=== PATIENT | male | born 1975 | race Caucasian/White ===

== ENCOUNTER 2017-05-17 18:29 | Emergency (ER) | payer SELFPAY ==
--- NOTE | 2017-05-17 18:34 | ED ---
HPI Febrile Illness - HPI Summary HPI Summary: 42 YEAR OLD MALE PRESENTS WITH COMPLAINS OF SYNCOPAL EPISODE X 2 IN THE BATHROOM AND LEFT SIDED RIB PAIN. - History of Current Complaint Time Seen by Provider: 05/17/17 18:33 - Allergy/Home Medications Allergies/Adverse Reactions: Allergies Allergy/AdvReac Type Severity Reaction Status Date / Time No Known Allergies Allergy Verified 05/17/17 18:45 Home Medications: Home Medications Ascorbic Acid [Vitamin C] 1 tab PO DAILY 05/17/17 [History Confirmed 05/17/17] Multiple Vitamins W/ Minerals [Multivitamin Adults] 1 tab PO DAILY 05/17/17 [ History Confirmed 05/17/17] Naproxen [Naprosyn 500 mg] 500 mg PO DAILY 05/17/17 [History Confirmed 05/17/17] PMH/Surg Hx/FS Hx/Imm Hx Previously Healthy: Yes Endocrine/Hematology History: Denies: Hx Diabetes Cardiovascular History: Denies: Hx Congestive Heart Failure, Hx Hypertension GI History: Reports: Other GI Disorders - hx of hernia History: Reports: Other Problems/Disorders - scrotal pain now - Social History Alcohol Use: None Substance Use Type: Reports: None Smoking Status (MU): Never Smoked Tobacco Review of Systems Positive: Fatigue Eyes: Negative ENT: Negative Cardiovascular: Negative Respiratory: Negative Gastrointestinal: Negative Genitourinary: Negative Musculoskeletal: Negative Skin: Negative Positive: Weakness, Syncope All Other Systems Reviewed And Are Negative: Yes Physical Exam Triage Information Reviewed: Yes Vital Signs Reviewed: Yes Appearance: Positive: Ill-Appearing Skin: Positive: Warm Head/Face: Positive: Normal Head/Face Inspection Eyes: Positive: Normal ENT: Positive: Normal ENT inspection Neck: Positive: Supple Respiratory/Lung Sounds: Positive: Clear to Auscultation Cardiovascular: Positive: Normal Abdomen Description: Positive: Nontender Bowel Sounds: Positive: Present Neurological: Positive: Normal Psychiatric: Positive: Normal Course/Dx - Diagnoses Provider Diagnoses: Syncope Discharge - Discharge Plan Condition: Stable Disposition: HOME Patient Education Materials: Fever in Adults (ED), Syncope (ED) Referrals: No Primary Care Phys,NOPCP [Primary Care Provider] - Additional Instructions: PLEASE GO TO ER TO RULE OUT CT/STROKE
[2017-05-17] MEDS ORDERED: Aspirin Low Dose CHEW TAB* 81 MG ONE (18:49)
[2017-05-17 18:51] VITALS: BP 190/108
[2017-05-17] MEDS ORDERED: Aspirin Low Dose CHEW TAB* 81 MG PO ONE (18:51)
[2017-05-18] MEDS ORDERED: Aspirin Low Dose CHEW TAB* 81 MG PO SCH (09:00)
== END 2017-05-17 18:55 | disposition home or self-care (01) ==
LOC: UCEAST 18:29
DX: R55 Syncope and collapse (principal); N50.82 Scrotal pain
CPT/HCPCS: 93005; 99201; A9270-GY; G0463

== ENCOUNTER 2017-05-17 19:14 | Emergency (ER) | payer SELFPAY ==
[2017-05-17 20:32] LABS: Hematocrit 42 % (42-52); Hemoglobin 13.6 g/dl (14.0-18.0); Mean Corpuscular HGB Conc 33 g/dl (31-36); Mean Corpuscular Hemoglobin 28 pg (27-31); Mean Corpuscular Volume 84 fL (80-94); Mean Platelet Volume 9 um3 (7.4-10.4); Red Blood Count 4.97 10^6/ul (4.0-5.4); Red Cell Distribution Width 14 % (10.5-15); White Blood Count 8.7 10^3/ul (3.5-10.8)
[2017-05-17 20:49] LABS: Albumin 4.4 g/dL (3.2-5.2); BUN/Creatinine Ratio 24.2 (8-20); Calcium 9.3 mg/dL (8.6-10.3); EGFR African American 171.9 (>60); EGFR Non-African American 133.7 (>60); Globulin 2.8 g/dL (2-4); Potassium 3.6 mmol/L (3.5-5.0); Total Bilirubin 0.4 mg/dL (0.2-1.0); Total Protein 7.2 g/dL (6.4-8.9)
--- NOTE | 2017-05-17 20:50 | ED ---
Preston Seth SooYoung, scribed for Nelson Stephens MD on 05/17/17 at 2017 . Complex/Multi-Sys Presentation - HPI Summary HPI Summary: A 42 y/o M referred [place] [facility] [place] after syncopal episode two nights ago. Pt states, two nights ago he was experiencing hot and cold flashes, diaphoresis, dizziness, paleness, mild L-sided chest pain. He went to take a shower and had a syncopal episode. Pt did not seek medical attention at that time. Today pt is experiencing diaphoresis, fatigue, L-sided pain where he fell. Pt had high blood pressure at [facility]. Denies n/v/d. No PCP, it has been 20 years since his last PE. Non-smoker. - History Of Current Complaint Chief Complaint: EDSyncope Time Seen by Provider: 05/17/17 20:10 Hx Obtained From: Patient, Family/[employer] - Onset/Duration: Gradual Onset, Lasting Days - two days ago, Still Present Timing: Constant Severity Currently: Moderate Severity Initially: Moderate Associated Signs And Symptoms: Positive: Syncope, Chest Pain, Diaphoresis, Other - pos: hot/cold flashes, high BP, fatigue, L-sided pain from syncope fall , pale. Negative: Nausea, Vomiting, Diarrhea - Allergies/Home Medications Allergies/Adverse Reactions: Allergies Allergy/AdvReac Type Severity Reaction Status Date / Time No Known Allergies Allergy Verified 05/17/17 18:45 PMH/Surg Hx/FS Hx/Imm Hx Previously Healthy: No - no PE in past 20 years Endocrine/Hematology History: Denies: Hx Diabetes Cardiovascular History: Denies: Hx Congestive Heart Failure, Hx Hypertension GI History: Reports: Other GI Disorders - hx of hernia History: Reports: Other Problems/Disorders - scrotal pain now Infectious Disease History: Denies: Traveled Outside the [place] in Last 30 Days - Family History Known Family History: Positive: Diabetes - mother Negative: Cardiac Disease, Hypertension - Social History Occupation: Employed Full-time Lives: With Family Alcohol Use: None Hx Substance Use: No Substance Use Type: Reports: None Hx Tobacco Use: No Smoking Status (MU): Never Smoked Tobacco Review of Systems Positive: Chills - and hot flashes, Fatigue, Skin Diaphoresis Positive: Chest Pain, Other - pos: high BP Negative: Vomiting, Diarrhea, Nausea Positive: Myalgia - L-sided, from syncopal fall Positive: Other - pos: paleness Neurological: Other - pos: dizziness Positive: Syncope All Other Systems Reviewed And Are Negative: Yes Physical Exam Triage Information Reviewed: Yes Vital Signs On Initial Exam: Initial Vitals Temp Pulse Resp BP Pulse Ox 98.7 F 72 16 181/98 97 05/17/17 19:25 05/17/17 19:25 05/17/17 19:25 05/17/17 19:25 05/17/17 19:25 Vital Signs Reviewed: Yes Appearance: Positive: Well-Appearing, No Pain Distress Skin: Positive: Warm Head/Face: Positive: Normal Head/Face Inspection Eyes: Positive: CHRISTIANO ENT: Positive: Hearing grossly normal Neck: Positive: Supple Respiratory/Lung Sounds: Positive: Clear to Auscultation, Breath Sounds Present Cardiovascular: Positive: RRR Abdomen Description: Positive: Nontender, Soft Bowel Sounds: Positive: Present Musculoskeletal: Positive: Strength/ROM Intact Neurological: Positive: Alert, Oriented to Person Place, Time Psychiatric: Positive: Affect/Mood Appropriate Diagnostics - Vital Signs Vital Signs Temp Pulse Resp BP Pulse Ox 05/17/17 19:25 98.7 F 72 16 181/98 97 - Laboratory Result Diagrams: 05/17/17 20:15 05/17/17 20:15 Lab Statement: Any lab studies that have been ordered have been reviewed, and results considered in the medical decision making process. - Radiology Ribs with CXR Xray Interpretation: No Acute Changes - IMPRESSION: No radiographically apparent displaced rib fracture or pneumothorax. If the patient's symptoms persist, follow-up imaging is recommended. Radiology Interpretation Completed By: Radiologist - EKG 1943 Cardiac Rate: NL EKG Rhythm: Sinus Rhythm Re-Evaluation - Re-Evaluation 1 Re-Evaluation Time: 23:46 Change: Improved Comment: Discussing results and dispo with pt. Pt voiced understanding. Complex Multi-Symp Course/Dx Course Of Treatment: Pt is a 42 y/o M referred from [facility] presenting after syncopal episode two nights ago. Two nights ago, pt experienced hot and cold flashes, diaphoresis, dizziness, paleness, mild L-sided chest pain. He went to take a shower and had a syncopal episode. Pt did not seek medical attention at that time. Today, pt is experiencing diaphoresis, fatigue, L-sided pain where he fell, same mild CP. Pt had high blood pressure at [facility]. Denies n/v/d. No PCP, it has been 20 years since his last PE. Non-smoker. Blood and lab work results are without significant abnormalities. EKG was NSR. Ribs with CXR is neg for [employer] and rib fx. - Diagnoses Provider Diagnoses: HTN (hypertension), general malaise Discharge - Discharge Plan Condition: Stable Disposition: HOME Patient Education Materials: Hypertension (ED), Fatigue (ED) Forms: *Work Release Referrals: No Primary Care Phys,NOPCP [Primary Care Provider] - [facility] [place] PHYSICIAN REFERRAL [Outside] Additional Instructions: Establish and follow up with a primary care provider for further evaluation of your high blood pressure. Please return to the ED if you experience new or worsening symptoms. The documentation as recorded by the Preston martinez SooYoung accurately reflects the service I personally performed and the decisions made by me, Nelson Stephens MD.
[2017-05-17 20:52] LABS: Troponin I 0.01 ng/mL (<0.04)
--- NOTE | 2017-05-17 21:20 | RAD ---
INDICATION: Dizziness and diaphoresis with abnormal EKG. COMPARISON: Most recent chest x-ray is dated October 29, 2011 TECHNIQUE: 3 views of the left ribs were obtained. FINDINGS: No fracture or significant focal osseous abnormality is seen. No pneumothorax is apparent. Limited views demonstrate grossly clear lungs. IMPRESSION: No radiographically apparent displaced rib fracture or pneumothorax. If the patient's symptoms persist, follow-up imaging is recommended.
[2017-05-17 23:57] VITALS: BP 142/91
== END 2017-05-17 23:59 | disposition home or self-care (01) ==
LOC: ED 19:14
DX: I10 Essential (primary) hypertension (principal); R53.81 Other malaise; R55 Syncope and collapse; R07.9 Chest pain, unspecified; R53.83 Other fatigue
CPT/HCPCS: 36415; 80053; 83605; 83735; 84484; 85025; 93005; 99284

== ENCOUNTER 2018-08-15 15:19 | Emergency (ER) | payer SELFPAY ==
[2018-08-15 16:06] VITALS: BP 154/89
[2018-08-15] MEDS ORDERED: Albuterol HFA INHALER* 8 gm MDI INH ONE (16:28)
--- NOTE | 2018-08-15 16:28 | UC ---
Respiratory Complaint HPI - HPI Summary HPI Summary: The patient is a 43-year-old male with a 2 day history of chest pressure and tightness associated with a productive cough and sore throat. He has had no documented fever. His cough has been productive of phlegm. He works as a cook. He has moderate to severe myalgias. - History of Current Complaint Chief Complaint: UCRespiratory Stated Complaint: ST,COUGH Time Seen by Provider: 08/15/18 16:03 Hx Obtained From: Patient Onset/Duration: Gradual Onset, Lasting Days Timing: Constant Severity Initially: Mild Severity Currently: Moderate Pain Intensity: 6 Pain Scale Used: 0-10 Numeric Character: Cough: Productive Aggravating Factors: Exertion, Deep Breaths, Recumbent Position Alleviating Factors: Nothing Associated Signs And Symptoms: Positive: Nasal Congestion, Sinus Discomfort - Allergies/Home Medications Allergies/Adverse Reactions: Allergies Allergy/AdvReac Type Severity Reaction Status Date / Time No Known Allergies Allergy Verified 08/15/18 16:07 Home Medications: Home Medications Hydrochlorothiazide TAB* [Hydrodiuril TAB*] 25 mg PO DAILY 08/15/18 [History Confirmed 08/15/18] PMH/Surg Hx/FS Hx/Imm Hx Previously Healthy: Yes Cardiovascular History: Hypertension - Surgical History Surgical History: None Surgery Procedure, Year, and Place: denies - Family History Known Family History: Positive: Diabetes - mother Negative: Cardiac Disease, Hypertension - Social History Alcohol Use: Occasionally Substance Use Type: None Smoking Status (MU): Never Smoked Tobacco Review of Systems Constitutional: Negative Skin: Negative Eyes: Negative ENT: Nasal Discharge, Sinus Congestion Respiratory: Cough Cardiovascular: Negative Gastrointestinal: Negative Genitourinary: Negative Motor: Negative Neurovascular: Negative Musculoskeletal: Myalgia Neurological: Negative Psychological: Negative All Other Systems Reviewed And Are Negative: Yes Physical Exam Triage Information Reviewed: Yes Appearance: No Pain Distress, Well-Nourished Vital Signs: Initial Vital Signs Temp 98.7 F 08/15/18 16:03 Pulse 78 08/15/18 16:03 Resp 18 08/15/18 16:03 BP 154/89 08/15/18 16:03 Pulse Ox 98 08/15/18 16:03 Eyes: Positive: Conjunctiva Clear ENT: Positive: Hearing grossly normal, Nasal congestion, Nasal drainage Neck: Positive: Supple, Nontender, No Lymphadenopathy Respiratory: Positive: No respiratory distress, No accessory muscle use, Wheezing Cardiovascular: Positive: RRR, No Murmur Musculoskeletal: Positive: ROM Intact, No Edema Neurological: Positive: Alert Psychological Exam: Normal Skin Exam: Normal UC Diagnostic Evaluation - Laboratory O2 Sat by Pulse Oximetry: 98 - normal/not hypoxic Diagnostic Studies Comment: strep(-). influenza (-) Respiratory Course/Dx - Course Course Of Treatment: refuses work note - Differential Dx/Diagnosis Provider Diagnoses: acute bronchitis with bronchospasm Discharge - Sign-Out/Discharge Documenting (check all that apply): Patient Departure All imaging exams completed and their final reports reviewed: No Studies - Discharge Plan Condition: Stable Disposition: HOME Prescriptions: Amoxicillin PO (*) [Amoxicillin 875 MG (*)] 875 mg PO BID #14 tab predniSONE [Deltasone 20 MG TAB] 40 mg PO DAILY #10 tab Patient Education Materials: Bronchospasm (ED), Acute Bronchitis (ED) Referrals: Morteza Herrera MD [Primary Care Provider] - 3 Days (recheck in 3-5 days if not better) Additional Instructions: recheck for new or worsening symptoms - Billing Disposition and Condition Condition: STABLE Disposition: Home
== END 2018-08-15 16:56 | disposition home or self-care (01) ==
LOC: UCEAST 15:19
DX: J20.9 Acute bronchitis, unspecified (principal)
CPT/HCPCS: 87651; 93005; 99212; A9270-GY; G0463